=== PATIENT | male | born 1965 | race Caucasian/White ===

== ENCOUNTER 2017-04-07 09:59 | Emergency (ER) | payer BC ==
[2017-04-07] MEDS ORDERED: TOPROL XL25 M1 PO (10:10)
[2017-04-07] MEDS ORDERED: COZAAR100 M1 PO (10:12)
[2017-04-07] MEDS ORDERED: NORCO 5-325 TA1 EACH PO (11:44)
[2017-04-07] MEDS ORDERED: IBUPROFEN600 M1 PO (11:44)
== END 2017-04-07 12:00 ==
LOC: EDMED 09:59
DX: S20.211A Contusion of right front wall of thorax, initial encounter (principal); S40.011A Contusion of right shoulder, initial encounter; S80.211A Abrasion, right knee, initial encounter; S50.311A Abrasion of right elbow, initial encounter; I10 Essential (primary) hypertension; Z79.899 Other long term (current) drug therapy; V49.40XA Driver injured in collision with unspecified motor vehicles in traffic accident, initial encounter; Y92.410 Unspecified street and highway as the place of occurrence of the external cause
CPT/HCPCS: J2270